=== PATIENT | male | born 1980 | race Caucasian/White ===

== ENCOUNTER 2016-10-30 19:57 | Observation (INO) | payer SELFPAY ==
--- NOTE | 2016-10-30 20:48 | CT ---
EXAM: CT Head Without Intravenous Contrast CLINICAL HISTORY: 36 years old, male; Injury or trauma; Fall; Initial encounter; Abrasion; Forehead; Additional info: ETOH - R/O ich and FX TECHNIQUE: Axial computed tomography images of the head/brain without intravenous contrast. This CT exam was performed using one or more of the following dose reduction techniques: automated exposure control, adjustment of the mA and/or kV according to patient size, and/or use of iterative reconstruction technique. EXAM DATE/TIME: Exam ordered 10/30/2016 8:14 PM COMPARISON: No relevant prior studies available. FINDINGS: Brain: Unremarkable. No hemorrhage. No significant white matter disease. No edema. Ventricles: Unremarkable. No ventriculomegaly. Bones/joints: Unremarkable. No acute fracture. Soft tissues: Unremarkable. Sinuses: Unremarkable as visualized. No acute sinusitis. Mastoid air cells: Unremarkable as visualized. No mastoid effusion. Auditory system: Soft tissue thickening is noted within the external auditory canal on the left. IMPRESSION: 1. No acute intracranial findings. 2. Soft tissue thickening noted in the external auditory canal on the left. Direct visualization suggested.
--- NOTE | 2016-10-30 21:19 | C.PDOC ---
History Of Present Illness <Isabelligia MARSHALLRoberto - Last Filed: 10/30/16 21:24> <Leander Dodge - Last Filed: 10/31/16 01:52> 36 year old male was brought to the ED by EMS after being found laying down intoxicated with an abrasion on the nose. Patient admits to drinking alcohol and denies LOC, tingling sensations, or suicidal ideations. (Elijah MARSHALLRoberto) 0200: SIGNED OVER, pt seen and examined, intox, with facial abrasions CT's reviewed of head/Face neg. ok for d/c (Leander Dodge) History Per: Patient, EMS History/Exam Limitations: no limitations Onset/Duration Of Symptoms: Hrs Current Symptoms Are (Timing): Still Present Suicide/Self Injury Attempted (Context): None Modifying Factor(s): Alcohol Associated Symptoms: denies: Suicidal Thoughts, Suicidal Plan Involuntary Hold By: None Recent travel outside of the [place]: No <Elijah MARSHALLRoberto - Last Filed: 10/30/16 21:24> <Leander Dodge - Last Filed: 10/31/16 01:52> Chief Complaint (Nursing): Substance Abuse Past Medical History Reviewed: Historical Data, Nursing Documentation, Vital Signs Family History: States: Unknown Family Hx - Social History Hx Tobacco Use: Yes Hx Alcohol Use: Yes Hx Substance Use: No - Immunization History Hx Tetanus Toxoid Vaccination: No Hx Influenza Vaccination: No Hx Pneumococcal Vaccination: No <Isabelligia Roberto MARSHALL - Last Filed: 10/30/16 21:24> Review Of Systems Constitutional: Negative for: Fever, Chills Cardiovascular: Negative for: Chest Pain, Palpitations Respiratory: Negative for: Cough, Shortness of Breath Gastrointestinal: Negative for: Nausea, Vomiting, Abdominal Pain, Diarrhea Skin: Positive for: Other (abrasion to the nose ) Neurological: Negative for: Weakness, Numbness, Confusion, Headache, Dizziness Psych: Negative for: Suicidal ideation <Isabelligia MARSHALLRoberto - Last Filed: 10/30/16 21:24> Physical Exam - Physical Exam Appears: Non-toxic, No Acute Distress Skin: Warm, Dry Head: No Swelling, Abrasion (Abrasion to the nose, no laceration or swelling. ) , No Laceration Eye(s): bilateral: Normal Inspection, PERRL, EOMI Oral Mucosa: Moist Neck: No Midline Cervical Tenderness, No Paracervical Tenderness, Supple Chest: Symmetrical, No Deformity Cardiovascular: Rhythm Regular Respiratory: No Rales, No Rhonchi, No Stridor, No Wheezing Gastrointestinal/Abdominal: Soft, No Tenderness, No Distention, No Guarding, No Rebound Extremity: Normal ROM, No Tenderness Neurological/Psych: Oriented x3 <Roberto Nava DO - Last Filed: 10/30/16 21:24> ED Course And Treatment O2 Sat by Pulse Oximetry: 96 (room air ) <Roberto Nava DO - Last Filed: 10/30/16 21:24> ED OBSERVATION Date of observation admission: 10/30/16 Time of observation admission: 21:22 <Roberto Nava DO - Last Filed: 10/30/16 21:24> <Leander Dodge - Last Filed: 10/31/16 01:52> - Observation admission statement Patient is being placed in observation because:: intoxication (Roberto Nava DO) - Goals of Observation Goals of observation are:: sobreity (Roberto Nava DO) - Progress Note Progress Note: 10/30/16 21:22 Patient is resting comfortably and is in no acute distress. 10/30/16 21:24 (Roberto Nava DO) Disposition <Roberto Nava DO - Last Filed: 10/30/16 21:24> Doctor Will See Patient In The: Office Counseled Patient/Family Regarding: Studies Performed, Diagnosis - Disposition Disposition Time: 01:52 <Leander Dodge - Last Filed: 10/31/16 01:52> - Disposition Disposition: HOME/ ROUTINE Condition: GOOD - Clinical Impression Clinical Impression: Alcohol intoxication, Facial abrasion - Scribe Statement The provider has reviewed the documentation as recorded by the Scribe <Roberto Nava DO - Last Filed: 10/30/16 21:24> <Leander Dodge - Last Filed: 10/31/16 01:52> - Scribe Statement Lisa Burnett All medical record entries made by the Scribe were at my direction and personally dictated by me. I have reviewed the chart and agree that the record accurately reflects my personal performance of the history, physical exam, medical decision making, and the department course for this patient. I have also personally directed, reviewed, and agree with the discharge instructions and disposition. (Roberto Nava DO)
--- NOTE | 2016-10-30 21:28 | CT ---
EXAM: CT Orbits Without Intravenous Contrast CLINICAL HISTORY: 36 years old, male; Injury or trauma; Fall; Initial encounter; Abrasion; Eyelid; Upper left; Additional info: ETOH - R/O FX TECHNIQUE: Axial computed tomography images of the orbits without intravenous contrast. This CT exam was performed using one or more of the following dose reduction techniques: automated exposure control, adjustment of the mA and/or kV according to patient size, and/or use of iterative reconstruction technique. Coronal and sagittal reformatted images were created and reviewed. EXAM DATE/TIME: Exam ordered 10/30/2016 8:14 PM COMPARISON: No relevant prior studies available. FINDINGS: Orbits: Unremarkable. Sinuses: Minimal mucosal thickening is noted in the floor the maxillary sinuses bilaterally. No air-fluid levels. Auditory system: Soft tissue thickening/debris is noted within the external auditory canal of the left ear. No middle ear fluid. Bones/joints: Mild degenerative changes are noted of the visualized portion of cervical spine with anterior and posterior marginal osteophytes at C34 and small anterior marginal osteophytes at the visualized portion of C5 and C6. No acute fracture. Soft tissues: Unremarkable. Nasopharynx: The there is slight leftward deviation of the nasal septum. IMPRESSION: 1. No evidence of fracture 2. Mucosal thickening noted in the maxillary sinuses bilaterally 3. Soft tissue thickening/debris noted within the external auditory canal the left ear. 4. Mild degenerative changes noted in the visualized portion of the cervical spine.
[2016-10-31 02:25] VITALS: BP 114/78; PULSE 97; RESP 18; TEMP 98.2; O2SAT 95
== END 2016-10-31 01:50 | disposition home or self-care (01) ==
LOC: C.ER 19:57 → C.9OBSV 21:53
PROVIDERS: ADMIT Emergency Medicine; ATTEND Emergency Medicine
DX: F10.229 Alcohol dependence with intoxication, unspecified (principal); S00.31XA Abrasion of nose, initial encounter; X58.XXXA Exposure to other specified factors, initial encounter
CPT/HCPCS: 70450; 70480; 99285; G0378